=== PATIENT | female | born 1965 | race Caucasian/White ===

== ENCOUNTER → 2020-11-20 | Outpatient (CLI) | payer OTHER ==
--- NOTE | 2020-11-20 15:14 | RAD ---
Exam: CT of abdomen and pelvis without contrast INDICATION: Left lower quadrant abdominal pain, history of kidney stones TECHNIQUE: Sequential axial images through the abdomen and pelvis obtained without IV contrast. Sagit amanda and coronal reformatted images were reconstructed from the axial data and reviewed. Comparisons: None FINDINGS: Heart size is normal. No pericardial effusion. Visualized lung bases are clear. No pleural effusion. Evaluation solid organs limited secondary to noncontrast technique. Liver, spleen, pancreas, gallbladder and adrenals are unremarkable. No perinephric inflammation or hydronephrosis. Several nonobstructing right renal calculi are noted. No ureteral calculi are seen. Bladder is distended and appears thin-walled. Uterus is not enlarged. No abnormal adnexal mass. Large and small bowel are unremarkable. Appendix is not identified. No free intra-abdominal air fluid . No obstruction. Abdominal aorta has a normal course and caliber. Abdominal vasculature is patent. No enlarged abdominal lymph nodes are identified. No suspicious osseous lesions or acute fractures. IMPRESSION: 1. No acute process identified within the abdomen or pelvis. 2. Several nonobstructing right renal calculi. 3. Cholelithiasis Exposure: One or more of the following in the visualized dose reduction techniques were utilized for this examination: 1. Automated exposure control 2. Adjustment of the MA and/or KV according to patient size 3. Use of iterative of reconstructive technique Electronically signed by: Faye Tang MD (11/20/2020 3:12 PM) [facility]
== END ==
LOC: CT 14:37
PROVIDERS: ATTEND Obstetrics & Gynecology
DX: R10.2 Pelvic and perineal pain (principal)
CPT/HCPCS: 74176

== ENCOUNTER → 2021-03-04 | Outpatient (CLI) | payer OTHER ==
[~2021-03-04] MED LIST: IOHEXOL 240 MG/ML 50ML VIAL. ONE; IOHEXOL 300 MG/ML 75 ML VIAL. IV ONE
--- NOTE | 2021-03-04 13:25 | RAD ---
CT of the abdomen and pelvis with contrast 03/04/2021 1:19 PM Indication: Reason: ABDOMEN PAIN. / Spl. Instructions: / History: Comparison study: CT of the abdomen and pelvis November 20, 2020 Technique: Multidetector CT imaging of the abdomen and pelvis was performed following the administrat ion of IV contrast. Findings: The partially visualized lung bases demonstrate no acute abnormality. The liver, spleen, bilateral adrenal glands, and pancreas, are grossly unremarkable. Subcentimeter nonobstructing renal stones noted on the right. This includes a 3 mm and 4 mm stone in the superior r ight kidney as well as a 4 mm and 3 mm stone in the inferior right kidney. No evidence of hydronephro sis or obstructive uropathy is seen. No evidence of ureteral stone. Cholelithiasis noted. Prior appendectomy noted. There is no bowel obstruction. No evidence of acute inflammatory change involving visualized bowel is identified. Bladder is grossly unremarkable. No free fluid or free air is seen in the abdomen or pe lvis. No acute osseous changes are identified. Impression: 1. Cholelithiasis 2. Right nephrolithiasis 3. No acute change from prior exam is identified CT DOSING PQRS STATEMENT: One or more of the following individualized dose reduction techniques were utilized for this examinat ion: 1. Automated exposure control 2. Adjustment of the mA and/or kV according to patient size 3. Use of iterative reconstruction technique Electronically signed by: Rizwan Dow MD (03/04/2021 1:23 PM) [id number]
== END ==
LOC: CT 08:47
PROVIDERS: ATTEND Internal Medicine Gastroenterology
DX: N20.0 Calculus of kidney (principal); K80.20 Calculus of gallbladder without cholecystitis without obstruction
CPT/HCPCS: 74177; Q9967

== ENCOUNTER 2021-12-18 04:43 | Emergency (ER) | payer OTHER ==
[~2021-12-18] VITALS: Ht 157.5 cm; Wt 61.8 kg
--- NOTE | 2021-12-18 04:58 | PHYS DOC ---
Adult General HPI HPI Patient is a 56-year-old female who presents with a chief complaint of nausea, vomiting and diarrhea. States she tested positive for Covid a week ago and last night started to have some nonbloody nonbilious emesis and then a couple hours later some soft stools. Denies any headache, pain or trouble swallowing, chest pain, shortness of breath, abdominal pain other than some cramping when she vomits, dysuria, hematuria, blood in the stool. States up until then she was eating and drinking normally. States she is making urine and stool normally for her up until yesterday. Review of Systems Review of Systems Review of systems otherwise unremarkable except noted in HPI Allergies Allergies Allergies Coded Allergies Type Severity Reaction Last Updated Verified Penicillins Allergy Unknown 03/04/21 Yes Sulfa (Sulfonamide Antibiotics) Allergy Unknown 03/04/21 Yes Uncoded Allergies Type Severity Reaction Last Updated Verified MICROBID Allergy Unknown 03/04/21 Physical Exam Physical Exam Constitutional: Well developed, well nourished, no acute distress, non-toxic appearance. [] HENT: Normocephalic, atraumatic, oropharynx moist, no oral exudates, nose normal. [] Eyes: conjunctiva normal, no discharge. [] Neck: Normal range of motion, no tenderness, supple, no stridor. [] Cardiovascular:Heart rate regular rhythm, no murmur [] Lungs & Thorax: Bilateral breath sounds clear to auscultation [] Abdomen: soft, no tenderness, no masses, no pulsatile masses. [] Skin: Warm, dry, no erythema, no rash, capillary refill normal. [] Back: No tenderness, no CVA tenderness. [] Extremities: No tenderness, no cyanosis, no clubbing, ROM intact, no edema. [] Neurologic: Alert and oriented X 3, normal motor function, normal sensory function, no focal deficits noted. [] Psychologic: Affect normal, judgement normal, mood normal. [] EKG EKG [] Radiology/Procedures Radiology/Procedures [] Heart Score C/O Chest Pain: No Risk Factors: Risk Factors: DM, Current or recent (<one month) smoker, HTN, HLP, family history of CAD, obesity. Risk Scores: Risk Factors: DM, Current or recent (<one month) smoker, HTN, HLP, family history of CAD, obesity. Course & Med Decision Making Course & Med Decision Making Patient is a 56-year-old female who presents with nausea, vomiting and diarrhea Vital signs not concerning. Physical exam noted above. Antiemetics given. Given Zofran prescription for home. Discussed symptom control at home. Discussed diet. Advised to call primary care physician this morning to update on ED visit and set up a follow-up. Gave return precautions to the ED. Patient grateful, verbalized understanding and agreed with plan of discharge. Dragon Disclaimer Dragon Disclaimer This electronic medical record was generated, in whole or in part, using a voice recognition dictation system. Departure Departure: Impression: Primary Impression: Nausea vomiting and diarrhea Disposition: HOME / SELF CARE / HOMELESS Condition: GOOD Referrals: JAMIE PAL MD (PCP) Patient Instructions: Diarrhea, Nausea and Vomiting Additional Instructions: Thank you for coming into the emergency department tonight and allowing us to take care of you. Please read the attached information carefully to go over things we discussed. Please take your nausea medicine as prescribed and until gone as this will allow you to have some fluid intake. Over the next couple of days please eat a light clear diet as we discussed. Please call your primary care physician in the morning to update on your ED visit and set up a follow-up when you can. Please come back with new or concerning symptoms as discussed. STEPH CHRISTINA MD Dec 18, 2021 04:58
[2021-12-18] MEDS ORDERED: ONDANSETRON ODT 4 MG TAB.RAPDIS PO ONE (05:00)
[2021-12-18] MEDS ORDERED: diphenhydrAMINE HCL 25 MG CAPSULE PO ONE (05:00)
[2021-12-18] MEDS ORDERED: METOCLOPRAMIDE HCL 10 MG/2 ML VIAL. IM ONE (05:00)
[2021-12-18] MEDS ORDERED: ONDANSETRON 4MG ODT 4TABLET STARTPACK. PO ONE (05:45)
[2021-12-18 05:46] VITALS: BP 138/70
== END 2021-12-18 05:50 | disposition home or self-care (01) ==
LOC: ER 04:43
DX: R11.2 Nausea with vomiting, unspecified (principal); R19.7 Diarrhea, unspecified; Z88.0 Allergy status to penicillin; Z88.2 Allergy status to sulfonamides
CPT/HCPCS: 96372; 99284; J2765; Q0162; Q0163

== ENCOUNTER → 2021-12-30 | Outpatient (CLI) | payer OTHER ==
[2021-12-18 05:46] VITALS: BP 138/70
--- NOTE | 2021-12-30 09:41 | RAD ---
Exam Date: 12/30/2021 8:[address] ABDOMEN+PELVIS W Indication: Reason: llq pain since covid - IV STARTED, CM ORDERED / Spl. Instructions: omni 300 75 ml , omni 240 pt premedicated / History: . TECHNIQUE: CT examination of the abdomen and pelvis was performed following the administration of or al and nonionic intravenous contrast. One or more of the following dose reduction techniques were ut ilized: *Automated exposure control (AEC) *Adjustment of mA and/or kV according to patient size *Use of iterative reconstruction technique *CT scan done according to ALARA, or ALARA/IMAGE GENTLY FINDINGS: The visualized lung bases are clear. There is a large calcified gallstone. There are multiple nonobstructing right renal calculi, the lar gest measuring 6 mm. No hydronephrosis. There is a too small to characterize hypodensity in the lef t kidney. The liver, gallbladder, spleen, pancreas, adrenal glands and kidneys are an otherwise normal. Urinary bladder is normal in appearance. There is no bowel obstruction or inflammation. Postoperative changes in the right lower quadrant sug gest prior appendectomy. Minimal atherosclerotic calcifications are seen. No lymphadenopathy or ascites is seen. Degenerative changes are seen in the spine. IMPRESSION: Gallstone. Nonobstructing right renal calculi. No acute abnormality seen. Electronically signed by: Parker Oseguera MD (12/30/2021 9:39 AM) [facility]
== END ==
LOC: CT 07:35
PROVIDERS: ATTEND Internal Medicine Gastroenterology
DX: K80.80 Other cholelithiasis without obstruction (principal); N20.0 Calculus of kidney; M47.819 Spondylosis without myelopathy or radiculopathy, site unspecified
CPT/HCPCS: 74177; Q9967